=== PATIENT | female | born 1985 | race Caucasian/White ===

== ENCOUNTER 2017-11-18 08:38 | Emergency (ER) | payer OTHER ==
[~2017-11-18] VITALS: Ht 170.2 cm; Wt 65.8 kg
--- NOTE | 2017-11-18 09:14 | ED GI/GU/ABDOMINAL COMPLAINT ---
History of Present Illness General Chief Complaint: Abdominal Pain/Flank Pain Stated Complaint: ABD PAIN Source: patient Exam Limitations: no limitations Vital Signs & Intake/Output Vital Signs & Intake/Output Vital Signs Date Time Temp Pulse Resp B/P B/P Pulse O2 O2 Flow FiO2 Mean Ox Delivery Rate 11/18 1134 98.1 68 18 106/72 99 Room Air 11/18 0853 97.0 71 20 96 Room Air Allergies Coded Allergies: No Known Allergies (11/18/17) Reconcile Medications Ibuprofen 800 MG TABLET 1 TAB PO TID PAIN Oxycodone HCl/Acetaminophen (Percocet 5-325 MG Tablet) 5 MG-325 MG TABLET 1-2 TAB PO BID PAIN Tamsulosin HCl (Flomax) 0.4 MG CAP.ER.24H 1 CAP PO DAILY TAL STONE Triage Note: PT STATES SHE HAS HAD A FEELING OF THE CONSTANT NEED TO URINATE SINCE THE BEGINNING OF THE MONTH. 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 DENIES HX OF KIDNEY STONES Triage Nurses Notes Reviewed? yes ? N Is pt currently ? No Onset: Abrupt Duration: day(s):, week(s): Location: right flank Radiation: RLQ, RUQ Activities at Onset: none HPI: 32-year-old female comes into emergency room for further evaluation of right flank pain wrapping around to right side of abdomen. Patient reports that she was having some urinary symptoms for a couple weeks for pain started today. Pain is sharp. Severe. Continuous. She denies any fever or vomiting. Nothing seems to make the symptoms better or worse. She comes in for further evaluation. (Roberth Khan) Past History Travel History Traveled to [place] past 21 day No Medical History Any Pertinent Medical History? see below for history Neurological: NONE EENT: NONE Cardiovascular: NONE Respiratory: NONE Gastrointestinal: NONE Hepatic: NONE Renal: NONE Musculoskeletal: NONE Psychiatric: NONE Endocrine: NONE Surgical History Surgical History: dENIES ANY ABDOMINAL SURGERIES Psychosocial History What is your primary language Ukrainian Tobacco Use: Current Daily Use Daily Tobacco Use Amount/Type: => 5 Cigarettes daily ETOH Use: occasional use Illicit Drug Use: denies illicit drug use Family History Hx Contributory? No (Roberth Khan) Review of Systems Review of Systems Constitutional: Reports: no symptoms. EENTM: Reports: no symptoms. Respiratory: Reports: no symptoms. Cardiovascular: Reports: no symptoms. GI: Reports: see HPI. Genitourinary: Reports: see HPI. Musculoskeletal: Reports: no symptoms. Skin: Reports: no symptoms. Neurological/Psychological: Reports: no symptoms. Hematologic/Endocrine: Reports: no symptoms. Immunologic/Allergic: Reports: no symptoms. All Other Systems: Reviewed and Negative (Roberth Khan) Physical Exam Physical Exam General Appearance: well developed/nourished, alert, awake, anxious, moderate distress Head: atraumatic Eyes: Bilateral: normal appearance. Ears, Nose, Throat, Mouth: hearing grossly normal, moist mucous membrane Neck: normal inspection Respiratory: no respiratory distress Gastrointestinal: soft, tenderness Back: normal inspection, normal range of motion, NO cva TENDERNESS Extremities: normal range of motion Neurologic/Psych: awake, alert, oriented x 3 Skin: intact, normal color Core Measures ACS in differential dx? No Sepsis Present: No Sepsis Focused Exam Completed? No (Roberth Khan) Progress Differential Diagnosis: appendicitis, bowel obstruction, cholecystitis, diverticulitis, ectopic , gastritis, kidney stone, ovarian cyst, ovarian torsion, SBO, UTI/pyelo Plan of Care: Orders Procedure Date/time Status LIPASE 11/18 913 Complete COMPREHENSIVE METABOLIC PANEL 11/18 913 Complete CBC WITHOUT DIFFERENTIAL 11/18 913 Complete Add-on Test (ER Only) 11/18 0909 Active URINE 11/18 0903 Complete URINALYSIS 11/18 0857 Complete Laboratory Tests 11/18/17 0945: Anion Gap 12, Estimated GFR > 60, BUN/Creatinine Ratio 20.0, Glucose 132 H, Calcium 8.8, Total Bilirubin 0.5, AST 11 L, ALT 22, Alkaline Phosphatase 73, Total Protein 6.2 L, Albumin 3.6, Globulin 2.6, Albumin/Globulin Ratio 1.4, Lipase 45, CBC w Diff NO MAN DIFF REQ, RBC 4.51, MCV 86.7, MCH 29.5, MCHC 34.0, RDW 13.5, MPV 8.1, Gran % 75.7 H, Lymphocytes % 17.9 L, Monocytes % 5.5, Eosinophils % 0.8, Basophils % 0.1, Absolute Granulocytes 5.2, Absolute Lymphocytes 1.2, Absolute Monocytes 0.4, Absolute Eosinophils 0.1, Absolute Basophils 0 11/18/17 0904: Urine Test Cancelled 11/18/17 0903: Urinalysis MOD H, Urine Color YEL, Urine Clarity CLDY H, Urine pH 7.5, Ur Specific [place] 1.020, Urine Protein NEG, Urine Ketones NEG, Urine Nitrite NEG, Urine Bilirubin NEG, Urine Urobilinogen 0.2, Ur Leukocyte Esterase NEG, Ur Microscopic SEDIMENT EXAMINED, Urine RBC 1-3, Urine WBC 1-3 H, Ur Epithelial Cells FEW, Urine Bacteria MOD H, Urine Hemoglobin TRACE-INTACT, Urine Glucose NEG, Urine Test NEGATIVE Diagnostic Imaging: Viewed by Me: CT Scan. Discussed w/RAD: CT Scan. Radiology Impression: PATIENT: SKIP RATLIFF PRESENT AGE: 32 PATIENT ACCOUNT NO: [id number] : 87 LOCATION: [facility] ORDERING PHYSICIAN: Roberth VU SERVICE DATE: 11/18/17 EXAM TYPE: CAT - CT ABD & PELVIS W/O IV CONTRAS EXAMINATION: CT ABDOMEN AND PELVIS WITHOUT CONTRAST CLINICAL INFORMATION: Right flank pain. COMPARISON: None TECHNIQUE: Multidetector volumetric imaging was performed from the superior aspect of the liver through the pubic symphysis. Sagittal and coronal reformatted images were obtained on the technologist's workstation. DLP: 257 mGy-cm FINDINGS: LUNG BASES : The visualized lung bases are unremarkable. LIVER, GALLBLADDER, AND BILIARY TREE: The liver is normal in size, shape, and attenuation. No focal hepatic lesion or biliary ductal dilatation is present. The gallbladder is unremarkable with no evidence of radiopaque gallstones, gallbladder wall thickening, or obvious pericholecystic inflammatory changes. PANCREAS: Unremarkable. SPLEEN: Unremarkable. ADRENAL GLANDS: Unremarkable. KIDNEYS AND URETERS: The kidneys are normal in size, shape, and attenuation. There is mild prominence of right proximal and mid ureter but no visible radiopaque stone seen in these segments. No perinephric stranding. BLADDER: Unremarkable. GASTROINTESTINAL TRACT: There is scattered stool in the right colon without colonic distention. The small bowel loops are normal caliber. Appendix is normal caliber. ABDOMINAL WALL: No significant hernia is appreciated. LYMPH NODES: Normal. VASCULAR: Unremarkable. PELVIC VISCERA: No adnexal mass, free fluid of free air seen. The uterus is anteverted and appears unremarkable. There are punctate radiopaque 2 mm densities in both adnexa adjacent to the bladder. A radiopaque stone in the right distal ureter cannot be excluded as there is mild prominence of right proximal ureter. OSSEOUS STRUCTURES: No lytic or sclerotic process seen. IMPRESSION: Mild constipation. Normal appendix. There are punctate radiopaque densities in bilateral adnexa of the pelvis. However there is mild prominence of right proximal and mid ureter suspicious but not definite for likely distal ureteral stone. If there is a clinical concern for a ureteral stone CT abdomen and pelvis with contrast with delayed studies can be performed. DICTATED BY: Sejal PUGH,Jesus DATE/TIME DICTATED:11/18/171035 DIRECTOR OF EARLY CHILDHOOD EDUCATION:PATRICK DATE/TIME TRANSCRIBED:11/18/171035 CONFIDENTIAL, DO NOT COPY WITHOUT APPROPRIATE AUTHORIZATION. <Electronically signed in Other Vendor System> SIGNED BY: Sejal PUGH,Jesus 11/18/17 1048 Initial ED EKG: none Comments: 11/18/2017 3:44:58 PM Patient's pain has resolved. Symptoms are most consistent with renal colic pain from kidney stone. Patient will be prescribed pain medication and recommended to follow-up with urologist. Return if any concerns worsening symptoms. No white count. Afebrile. No evidence of pyelonephritis. Reevaluated multiple times. Symptoms continued to improve. She feels ready to be discharged. (Jaret VU,Roberth) Departure Departure Disposition: HOME OR SELF CARE Condition: Stable Clinical Impression Primary Impression: Renal colic on right side Referrals: Ashley Staton MD Additional Instructions: Take Flomax, ibuprofen, Percocet for pain. Follow-up with urologist. Return if any concerns worsening symptoms. Please go over all results of today's visit with your primary care doctor. Contact your primary care doctor to let them know you were here in the emergency room. There may be nonspecific findings which may not be related to your visit today here in the emergency room but may require further evaluation and chronic monitoring by your primary care doctor. If you had a laceration today the chance of foreign body always remains. You should follow-up with your primary care doctor for recheck in 3-5 days for a wound check. If you had an x-ray done there is a chance that a fracture could have been missed on initial read and you should follow-up with your primary care doctor for repeat x-rays if symptoms persist. If your blood pressure was elevated here in the emergency room please have rechecked by sadi primary care doctor within the next 48. If you were prescribed a narcotic here in the emergency room or any type of controlled substances you're not allowed to drive while taking this medication or operate any type of heavy machinery. Narcotics can make you feel lightheaded dizziness nausea and can cause constipation. You may need to brick picker a stool softener. Thank you for choosing [facility] emergency room. Please return to the emergency room immediately if you have any other concerns worsening of symptoms. Departure Forms: Customer Survey General Discharge Information Prescriptions: Current Visit Scripts Oxycodone HCl/Acetaminophen (Percocet 5-325 MG Tablet) 1-2 TAB PO BID #15 TAB Ibuprofen 1 TAB PO TID #30 TAB Tamsulosin HCl (Flomax) 1 CAP PO DAILY #15 CAP (Roberth Khan) PA/TILE DESIGNER Co-Sign Statement Statement: ED Attending supervision documentation- [] I saw and evaluated the patient. I have also reviewed all the pertinent lab results and diagnostic results. I agree with the findings and the plan of care as documented in the PA's/TILE DESIGNER's documentation. [x] I have reviewed the ED Record and agree with the PA's/TILE DESIGNER's documentation. [] Additions or exceptions (if any) to the PAs/TILE DESIGNER's note and plan are summarized below: [] (Jose Montez DO)
[2017-11-18 09:52] LABS: ABSOLUTE BASOPHIL COUNT 0 /CUMM (0.0-0.2); ABSOLUTE EOSINOPHIL COUNT 0.1 /CUMM (0.0-0.7); ABSOLUTE GRANULOCYTE CT 5.2 /CUMM (1.4-6.5); ABSOLUTE LYMPH COUNT 1.2 /CUMM (1.2-3.4); ABSOLUTE MONOCYTE COUNT 0.4 /CUMM (0.10-0.60); BASOPHIL % 0.1 % (0.0-2.0); EOSINOPHIL % 0.8 % (0-5); GRANULOCYTE % 75.7 % (42.2-75.2); HEMATOCRIT 39.1 % (37-47); MEAN CORPUSCULAR HGB 29.5 PG (27.0-31.0); MEAN CORPUSCULAR VOLUME 86.7 FL (81.0-99.0); MEAN PLATELET VOLUME 8.1 FL (7.4-10.4); PLATELET COUNT 208 /CUMM (130-400); RBC DISTRIBUTION WIDTH 13.5 % (11.5-14.5); RED BLOOD CELL CT 4.51 /CUMM (4.20-5.40); WHITE BLOOD CELL COUNT 6.8 /CUMM (4.8-10.8)
--- NOTE | 2017-11-18 10:48 | CT SCAN REPORT ---
EXAMINATION: CT ABDOMEN AND PELVIS WITHOUT CONTRAST CLINICAL INFORMATION: Right flank pain. COMPARISON: None TECHNIQUE: Multidetector volumetric imaging was performed from the superior aspect of the liver through the pubic symphysis. Sagittal and coronal reformatted images were obtained on the technologist's workstation. DLP: 257 mGy-cm FINDINGS: LUNG BASES: The visualized lung bases are unremarkable. LIVER, GALLBLADDER, AND BILIARY TREE: The liver is normal in size, shape, and attenuation. No focal hepatic lesion or biliary ductal dilatation is present. The gallbladder is unremarkable with no evidence of radiopaque gallstones, gallbladder wall thickening, or obvious pericholecystic inflammatory changes. PANCREAS: Unremarkable. SPLEEN: Unremarkable. ADRENAL GLANDS: Unremarkable. KIDNEYS AND URETERS: The kidneys are normal in size, shape, and attenuation. There is mild prominence of right proximal and mid ureter but no visible radiopaque stone seen in these segments. No perinephric stranding. BLADDER: Unremarkable. GASTROINTESTINAL TRACT: There is scattered stool in the right colon without colonic distention. The small bowel loops are normal caliber. Appendix is normal caliber. ABDOMINAL WALL: No significant hernia is appreciated. LYMPH NODES: Normal. VASCULAR: Unremarkable. PELVIC VISCERA: No adnexal mass, free fluid of free air seen. The uterus is anteverted and appears unremarkable. There are punctate radiopaque 2 mm densities in both adnexa adjacent to the bladder. A radiopaque stone in the right distal ureter cannot be excluded as there is mild prominence of right proximal ureter. OSSEOUS STRUCTURES: No lytic or sclerotic process seen. IMPRESSION: Mild constipation. Normal appendix. There are punctate radiopaque densities in bilateral adnexa of the pelvis. However there is mild prominence of right proximal and mid ureter suspicious but not definite for likely distal ureteral stone. If there is a clinical concern for a ureteral stone CT abdomen and pelvis with contrast with delayed studies can be performed.
[2017-11-18] MEDS ORDERED: PERCOCET 5-3251 EACH PO (11:00)
[2017-11-18] MEDS ORDERED: IBUPROFEN800 M1 PO (11:00)
[2017-11-18] MEDS ORDERED: FLOMAX0.4 M1 PO (11:00)
[2017-11-18 11:34] VITALS: BP 106/72
== END 2017-11-18 11:37 ==
LOC: ERH 08:38
PROVIDERS: Physician Assistant Medical
DX: N23 Unspecified renal colic (principal)
CPT/HCPCS: 74176; 81001; 81025; 96361; 96374; 96375; J1885; J2405